=== PATIENT | female | born 1960 | race Caucasian/White ===

== ENCOUNTER → 2017-12-02 00:43 | Outpatient (CLI) | payer BC, SELFPAY ==
--- NOTE | 2017-12-02 08:30 | ETT_ITS ---
*[facility]* *[facility]* [address] [place] [address] Stress Electrocardiography Fredrick protocol Date of study: 12/02/2017 *PATIENT PRESENTATION* Height: 165.1cm (65in) Blood Pressure: Weight: 64.1kg (141lb) BSA: 1.72m^2 Ordering physician: Liset Ramey Impressions: Normal study after maximal exercise. Summary: 1. Stress ECG conclusions: The stress ECG is negative. Avelar treadmill score: 8. This score predicts a low risk of cardiac events. 2. Stress: The target heart rate was achieved. The heart rate response to stress is normal. There is a normal resting blood pressure with an appropriate response to stress. The patient experienced no chest pain during stress. Exercise capacity is recuced (9.3 METS). Indication: R00.2. History: REASON FOR TESTING: PT C/O DECREASED EXCERCISE TOLERANCE AND POUNDING HEARTBEAT. THE POUNDING HEATBEAT HAS NOT HAPPENED IN QUITE SOME TIME. PMH:HYPER;IPIDEMIA, COPD, HYPOTHYROID, LICHEN SCLEROSIS VULVA. FAMILY HX: CAD IN MOTHER. [id number], PAD. SMOKING: FORMER SMOKER 10-25 PACK YEARS.QUIT 5 YEARS AGO. EXCERCISE: NO REGULAR EXCERCISE. Risk factors: Family history of coronary artery disease. Dyslipidemia. Cholesterol: 282mg/dl. HDL: 71mg/dl. LDL: 187mg/dl. Triglycerides: 159mg/dl. ALLERGIES: ASPIRIN. MEDIOCATIONS: ALBUTEROL SULFATE 8.5 GM 2 PUFFS QID PRN, ASCORBIC ACID 250 MG DAILY, ATORVASTATIN CALCIUM 20 MG DAILY, VIT. D3 1000 UNITS DAILY, LOTRISONE CREAM 1 APPLICATIONS BID, ESTRADIOL 10 MCG PV HS 2X/WEEK. ADVAIR 250/50 DISKUS 1 PUFF BID, IBUPROFEN 200 MGS NEEDED, LEVOTHYROXINE 50 MCG DAILY, TRAZADONE HCL 50 MG 1-2 TABS HS PRN, VIT A 10,000 UNITS DAILY, VITAMIN B COMPLEX 1 DAILY, Protocol: Fredrick protocol. Baseline ECG: NO EKG FOR COMPARISON. TODAY'S EKG- SINUS RHYTHM, HR 63. Normal ECG. Stress protocol: + +---+ +----+ !Stage !HR !BP (mmHg) !Sat ! + +---+ +----+ !Baseline supine !63 !130/78 (95) !----! + +---+ +----+ !Baseline standing !78 !132/76 (95) !100%! + +---+ +----+ !Stage I; 1.7mph, 10degrees; 3 min !133!148/84 (105)!----! + +---+ +----+ !Stage II; 2.5mph, 12degrees; 3 min!148!162/88 (113)!96% ! + +---+ +----+ !Recovery; 1 min !164!182/88 (119)!----! + +---+ +----+ !Recovery; 3 min !112!170/84 (113)!----! + +---+ +----+ !Recovery; 6 min !92 !130/80 (97) !----! + +---+ +----+ * Stress results: Maximal heart rate during stress was 164bpm (101% of maximal predicted heart rate). The maximal predicted heart rate was 163bpm. The target heart rate was achieved. The heart rate response to stress is normal. There is a normal resting blood pressure with an appropriate response to stress. The rate-pressure product for the peak heart rate and blood pressure was 45446es Hg/min. The patient experienced no chest pain during stress. Exercise capacity is recuced (9.3 METS). Stress ECG: EXCERCSE TESTING ENDED IN 7 MINS, 28 SECS DUE TO FATIGUE AND DYSPNEA. MAX HR 164, 100% OF TARGET. HYPERTENSIVE BLOOD PRESSURE RESPONSE. METS: 9.31 ECTOPY: NONE SEEN. ANGINA: NO REPORTED CHEST PIAN OR PRESSURE. ISCHEMIA: NO ISCHEMIC CHANGES NOTED- ALL ST CHANGES WERE UPWARD SLOPING AND RETURNED TO BASELINE BY 6 MINS OF RECOVERY. FUNCTIONAL CAPACITY: AVERAGE CAPACITY. The stress ECG is negative. Avelar treadmill score: 8. This score predicts a low risk of cardiac events. Study data: Brandon Van MD supervised and was readily available during the procedure. This study was interpreted by [facility]. Study status: Routine. Consent: The risks, benefits, and alternatives to the procedure were explained to the patient and informed consent was obtained. Procedure: Initial setup. A baseline ECG was recorded. Surface ECG leads and manual cuff blood pressure measurements were monitored. Heart sounds: Normal. Lung sounds: Normal. Treadmill exercise testing was performed using the Fredrick protocol. Study completion: The patient tolerated the procedure well and was discharged from the lab. Discharge: The patient left the laboratory in stable condition. Birthdate: Patient birthdate: 1960. Sex: Gender: female. Study date: Study date: 12/02/2017. Study time: 08:30 AM. Signature Documentation: The Stress ECG portion of this study was interpreted by Brandon Van MD. Electronically signed by Brandon Van 12/02/2017 09:44
== END ==
PROVIDERS: PCP Nurse Practitioner; Visit Provider Nurse Practitioner
DX: R00.2 Palpitations (principal); R00.8 Other abnormalities of heart beat; R06.02 Shortness of breath; R68.89 Other general symptoms and signs; E78.5 Hyperlipidemia, unspecified; E03.9 Hypothyroidism, unspecified; J44.9 Chronic obstructive pulmonary disease, unspecified; Z87.891 Personal history of nicotine dependence; Z82.49 Family history of ischemic heart disease and other diseases of the circulatory system
CPT/HCPCS: 93017

== ENCOUNTER 2018-11-16 00:39 | Outpatient (CLI) | payer BC, SELFPAY ==
--- NOTE | 2018-11-16 11:10 | DI.MAMMO_ITS ---
SYMPTOM/DIAGNOSIS: SCREENING, Z12.31 MAMMOGRAMS: Mammograms were interpreted according to the usual protocol including computer analysis with CAD system, tomosynthesis and C view imaging. Comparison is with the prior examinations. No suspicious masses or microcalcifications are seen. There is no definite evidence of malignancy. IMPRESSION: Negative mammogram. Routine screening is recommended. Category 1, breast density C. MQSA ASSESSMENT OF FINDINGS: Negative. Category 1. Patient will receive a letter notifying them of these results. Bi-RADS category C. The breasts are heterogeneously dense, which may obscure small masses.
== END 2018-11-16 00:59 ==
PROVIDERS: PCP Nurse Practitioner; Visit Provider Nurse Practitioner Family
DX: Z12.31 Encounter for screening mammogram for malignant neoplasm of breast (principal)
CPT/HCPCS: 77063; 77067

== ENCOUNTER 2018-11-18 08:20 | Outpatient (CLI) | payer BC, SELFPAY ==
[2018-11-18 10:27] LABS: ALT 37 U/L (12-78); AST 18 U/L (15-37); Albumin 3.9 g/dL (3.4-5.0); Alkaline Phosphatase 111 U/L (46-116); Anion Gap 10.4 mmol/L (3-11); BUN 15 mg/dL (7-18); Bilirubin, Total 0.5 mg/dL (0.2-1.0); CO2 26.6 mmol/L (21.0-32.0); CREATININE 0.62 mg/dL (0.55-1.02); Calcium 8.9 mg/dL (8.5-10.1); Calculated LDL 92 mg/dL; Chloride 103 mmol/L (98-107); Cholesterol 184 mg/dL (50-200); Glucose 93 mg/dL (70-100); HDL Cholesterol 71 mg/dL (40-60); Potassium 4.5 mmol/L (3.5-5.1); Sodium 140 mmol/L (136-145); TSH (W/Ref FT4) 3.99 uIU/mL (0.36-3.74); Triglyceride 106 mg/dL (30-150)
[2018-11-18 10:47] LABS: FREE T4 1.05 ng/dL (0.76-1.46)
== END 2018-11-18 08:40 ==
PROVIDERS: PCP Nurse Practitioner; Visit Provider Nurse Practitioner
DX: E03.9 Hypothyroidism, unspecified (principal); E78.5 Hyperlipidemia, unspecified
CPT/HCPCS: 36415; 80053; 80061; 83721; 84439; 84443

== ENCOUNTER 2019-11-30 03:51 | Outpatient (CLI) | payer BC, SELFPAY ==
[2019-11-30 10:38] LABS: Calculated LDL 95 mg/dL (<100); Cholesterol 201 mg/dL (<200); HDL Cholesterol 72 mg/dL (40-60); Triglyceride 173 mg/dL (<150)
== END 2019-11-30 04:11 ==
PROVIDERS: PCP Nurse Practitioner; Visit Provider Nurse Practitioner
DX: E03.9 Hypothyroidism, unspecified (principal); E78.5 Hyperlipidemia, unspecified; I10 Essential (primary) hypertension
CPT/HCPCS: 36415; 80061; 84443

== ENCOUNTER 2019-11-30 08:55 | Outpatient (CLI) | payer BC, SELFPAY ==
--- NOTE | 2019-11-30 08:30 | DI.RAD_ITS ---
EXAM: XR WRIST RT COMPLETE CLINICAL HISTORY: right arm pain TECHNIQUE: COMPARISON: CR XR FOREARM RT from 11/30/2019 FINDINGS: Two views of the forearm and three views of the wrist were obtained. There is poorly defined lucency with some probable small linear lucencies of the distal radius raising the possibility of an acute o r subacute fracture. No other bony or soft tissue abnormality seen. IMPRESSION: Question nondisplaced fracture distal radius, please correlate clinically. Additional evaluation wi CT or MR may be considered if the clinical findings are inconsistent with trauma.
== END 2019-11-30 09:15 ==
PROVIDERS: PCP Nurse Practitioner; Referring Provider Nurse Practitioner; Visit Provider Student in an Organized Health Care Education/Training Program
DX: M79.601 Pain in right arm (principal)
CPT/HCPCS: 73090; 73110

== ENCOUNTER 2019-12-12 01:05 | Outpatient (CLI) | payer BC, SELFPAY ==
--- NOTE | 2019-12-12 12:00 | DI.MAMMO_ITS ---
EXAM: MAMMO SCREENING CLINICAL HISTORY: screening TECHNIQUE: Mammograms were interpreted according to the usual protocol including computer analysis w [employer] CAD system, tomosynthesis and C-view imaging. COMPARISON: 2009 through 2018 FINDINGS: The breasts are composed of heterogeneously dense fibroglandular densities, Breast Density category C . No suspicious masses or suspicious microcalcifications are seen. No skin thickening or abnormal axillary lymph nodes are seen. There has been no significant change from prior exams. IMPRESSION: BI-RADS Category 1: Negative mammogram Yearly screening mammography is recommended. Breast Density Category C, heterogeneously dense tissue which decreases the sensitivity of the mammog bart. The mammogram demonstrates the patient's breast tissue is dense. Dense breast tissue is very common a nd is not abnormal but dense breast tissue can make it harder to find cancer on a mammogram. Also, de nse breast tissue may increase breast cancer risk. This information about the result of the mammogram report was provided to the patient to raise their awareness. Use this report when you speak with the patient about their risks for breast cancer, which includes their family history. At that time, you may recommend additional screening tests (Ultrasound or MRI) as they might be useful based on their r isk. A negative radiographic report should not delay biopsy if a dominant or clinically suspicious mass is present. Up to ten percent of cancers are not identified on mammography. A negative report may reinforce clinical impression. Adenosis and dense breasts may obscure an underlying neoplasm. False positive reports average 6 to 10%.
== END 2019-12-12 01:25 ==
PROVIDERS: PCP Nurse Practitioner; Visit Provider Nurse Practitioner Family
DX: Z12.31 Encounter for screening mammogram for malignant neoplasm of breast (principal); R92.2 Inconclusive mammogram
CPT/HCPCS: 77063; 77067

== ENCOUNTER 2019-12-28 15:23 | Outpatient (CLI) | payer BC, SELFPAY ==
--- NOTE | 2019-12-28 15:05 | DI.RAD_ITS ---
EXAM: XR WRIST RT LIMITED CLINICAL HISTORY: fu fracture of right wrist. TECHNIQUE: 2D digital imaging was performed. COMPARISON: CR XR FOREARM RT from 11/30/2019 FINDINGS: There has been no change in alignment of the nondisplaced distal right radial fracture. No new fract ure or dislocation is seen. The soft tissues are unremarkable. IMPRESSION: Stable distal right radial fracture. DATA REPOSITORY: RADIATION DOSE DELIVERED:
== END 2019-12-28 15:43 ==
PROVIDERS: PCP Nurse Practitioner; Referring Provider Nurse Practitioner; Visit Provider Student in an Organized Health Care Education/Training Program
DX: S52.501A Unspecified fracture of the lower end of right radius, initial encounter for closed fracture (principal)
CPT/HCPCS: 73100

== ENCOUNTER 2020-01-25 15:26 | Outpatient (CLI) | payer BC, SELFPAY ==
--- NOTE | 2020-01-25 15:00 | DI.RAD_ITS ---
EXAM: XR WRIST RT LIMITED INDICATION: fu fracture. COMPARISON: CR XR WRIST RT COMPLETE from 11/30/2019 CR XR WRIST RT LIMITED from 12/28/2019 TECHNIQUE: 2D digital imaging was performed. FINDINGS: There has been continued healing at the distal radial fracture. DATA REPOSITORY: RADIATION DOSE DELIVERED:
== END 2020-01-25 15:46 ==
PROVIDERS: PCP Nurse Practitioner; Referring Provider Nurse Practitioner; Visit Provider Student in an Organized Health Care Education/Training Program
DX: S52.591D Other fractures of lower end of right radius, subsequent encounter for closed fracture with routine healing (principal)
CPT/HCPCS: 73100

== ENCOUNTER 2020-07-18 01:27 | Outpatient (CLI) | payer BC, SELFPAY ==
--- NOTE | 2020-07-18 14:44 | DI.RAD_ITS ---
EXAM: XR RIBS LT W PA LAT CHEST CLINICAL HISTORY: r/o bony abn; rib fx,LT SIDED RIB PAIN, PLEURODYNIA,R07.81 TECHNIQUE: 2D digital imaging was performed. COMPARISON: CR CHEST 2 VIEWS PA,LAT from 09/24/2015 FINDINGS: Heart size is normal. Mediastinum is not widened. Lungs are clear. No pneumothorax. No pleural ef fusions. With respect of the left rib cage images, there are no obvious rib fractures evident. No rib lesions seen. Pneumothorax. No compression fractures in the thoracic spinal column. IMPRESSION: 1. No obvious left rib fractures evident. 2. Lungs are clear. No pneumothorax. DATA REPOSITORY: RADIATION DOSE DELIVERED:
== END 2020-07-18 01:47 ==
PROVIDERS: PCP Nurse Practitioner; Visit Provider Nurse Practitioner Adult Health
DX: R07.81 Pleurodynia (principal)
CPT/HCPCS: 71046; 71100

== ENCOUNTER 2020-11-15 11:58 | Outpatient (REF) | payer OTHER, BC, SELFPAY ==
--- NOTE | 2020-11-15 11:30 | PAPFT_PTH ---
PATIENT: Jeana Stinson LOC: [facility] U#:[id number] AGE/SX: 60/F ROOM: RE11/15/[address]: DANIEL Yanez : 1960 BED: DIS: 11/15/2020 SPEC #: [id number] RECD: 11/15/20 12:55 STATUS: YANCI RERea #: [id number] RICHIE: 11/15/20 11:[address]: Meena Marcelo [facility] Cytology RECD BY: Rylie Dodge ENTERED: 11/15/20 12:55 SP TYPE: PAPFT OT DR: Liset Ramey APRN Tissues: 1 - CX/ENDOCX FOR PAP SMEARS Procedures: PAP THIN PREP/UVM Screening HPV DNA PROBE Comments: [id number]
== END 2020-11-15 11:59 | disposition home or self-care (01) ==
LOC: LBN 11:58
PROVIDERS: PCP Nurse Practitioner; Visit Provider Nurse Practitioner Family
DX: Z12.4 Encounter for screening for malignant neoplasm of cervix (principal); Z11.51 Encounter for screening for human papillomavirus (HPV); Z01.419 Encounter for gynecological examination (general) (routine) without abnormal findings
CPT/HCPCS: 88142; 87624

== ENCOUNTER 2020-12-25 01:13 | Outpatient (CLI) | payer OTHER, SELFPAY ==
--- NOTE | 2020-12-25 11:30 | DI.MAMMO_ITS ---
Exam(s) MAMMO SCREENING EXAM: MAMMO SCREENING CLINICAL HISTORY: screening TECHNIQUE: Bilateral full field digital CC and MLO mammographic images were obtained with 3D tomosyn thesis and utilizing computer aided detection (CAD). COMPARISON: Available for comparison. FINDINGS: Masses/Architectural Distortion: None seen. Microcalcifications: No suspicious pleomorphic-type are seen. Skin Thickening/Nipple Retraction: None. IMPRESSION: 1. No significant interval change with no specific features of malignancy noted. 2. Unless there is more urgent need, screening mammography is recommended, as per [employer] guidelines. BI-RADS Category 1 - Negative Breast Density - Category C - Heterogeneously dense Breast density category C or D implies that the patient has dense breast tissue. Dense breast tissue is very common and is not abnormal but dense breast tissue can make it harder to find cancer on a ma mmogram. Also, dense breast tissue may increase their breast cancer risk. This information about the result of the mammogram report was provided to the patient to raise their awareness. Use this report when you speak with the patient about their risks for breast cancer, which includes their family hist ory. At that time, you may recommend for more screening tests (Ultrasound or MRI) as they might be us eful based on their risk. A negative radiographic report should not delay biopsy if a dominant or clinically suspicious mass is present. Up to ten percent of cancers are not identified on mammography. A negative report may reinforce clinical impression. Adenosis and dense breasts may obscure an underlying neoplasm. False positive reports average 6 to 10%. Patient will receive a letter notifying them of these results.
== END 2020-12-25 01:33 ==
PROVIDERS: PCP Nurse Practitioner; Visit Provider Nurse Practitioner Family
DX: Z12.31 Encounter for screening mammogram for malignant neoplasm of breast (principal)
CPT/HCPCS: 77063; 77067

== ENCOUNTER 2021-01-01 04:44 | Outpatient (CLI) | payer OTHER, SELFPAY ==
[2021-01-01 11:13] LABS: ALT 41 U/L (14-59); AST 24 U/L (15-37); BUN 15 mg/dL (7-18); CREATININE 0.7 mg/dL (0.55-1.02); Calculated LDL 91 mg/dL (<100); Cholesterol 212 mg/dL (<200); Glucose 102 mg/dL (74-106); HDL Cholesterol 86 mg/dL (40-60); Triglyceride 177 mg/dL (<150)
== END 2021-01-01 04:45 | disposition home or self-care (01) ==
LOC: LBO 04:44
PROVIDERS: PCP Nurse Practitioner; Visit Provider Nurse Practitioner
DX: Z00.00 Encounter for general adult medical examination without abnormal findings (principal); E03.9 Hypothyroidism, unspecified; E78.5 Hyperlipidemia, unspecified; I10 Essential (primary) hypertension; Z13.1 Encounter for screening for diabetes mellitus
CPT/HCPCS: 36415; 80061; 82947; 84520; 82565; 84443; 84450; 84460

== ENCOUNTER 2021-08-07 01:11 | Outpatient (CLI) | payer OTHER, SELFPAY ==
--- NOTE | 2021-08-07 08:00 | DI.RAD_ITS ---
Exam(s) XR CHEST 2V PA LATERAL EXAM: XR CHEST 2V PA LATERAL CLINICAL HISTORY: persistent cough and wheeze,copd,r06.2,r05.9,j44.9 TECHNIQUE: 2D digital imaging was performed. COMPARISON: No exams were available for comparison FINDINGS: MEDIASTINUM: Normal. HEART: Normal. PULMONARY VASCULATURE: Normal. LUNGS: Patchy density seen anteriorly and above the right diaphragm suspicious for infiltrate. This is not seen on the previous exam. Lungs otherwise clear. PLEURAL SPACE: No pleural effusion or pneumothorax. BONE:Unremarkable for age. IMPRESSION: Probable right middle lobe infiltrate.. DATA REPOSITORY: RADIATION DOSE DELIVERED:
== END 2021-08-07 01:31 ==
PROVIDERS: PCP Nurse Practitioner; Visit Provider Nurse Practitioner
DX: R05.8 Other specified cough (principal); R06.2 Wheezing; J44.9 Chronic obstructive pulmonary disease, unspecified; R91.8 Other nonspecific abnormal finding of lung field
CPT/HCPCS: 71046

== ENCOUNTER 2021-09-16 03:07 | Outpatient (CLI) | payer OTHER, SELFPAY ==
[2021-09-16 12:00] LABS: Source Nasal/Nares
[2021-09-16 17:21] LABS: COVID-19 PCR Negative (Negative)
== END 2021-09-16 03:08 | disposition home or self-care (01) ==
LOC: LBO 03:07
PROVIDERS: PCP Nurse Practitioner; Visit Provider Surgery
DX: Z20.822 Contact with and (suspected) exposure to COVID-19 (principal); Z01.818 Encounter for other preprocedural examination
CPT/HCPCS: 87635

== ENCOUNTER 2021-09-17 06:15 | Day surgery (SDC) | payer OTHER, SELFPAY ==
--- NOTE | 2021-09-16 16:40 | W.PM.HP.N ---
Assessment and Plan Assessment and plan (1) Colon cancer screening: Status: Acute Assessment and plan: - She occasionally notes some bleeding when she wipes. - Plan:Colonscopy w/ MAC A complete H & P is required within 30 days of the procedure.? GETA w/out airway is used for anesthesia, w/ associated risks. Colonoscopy does not require antibiotics prophylaxis, except as noted below. ?Informed consent is obtained for the procedural (explained in simple layman's terms that?the pt and/or family could understand) explaining risks vs benefits and alternatives to the procedure and consequences if we do not do the procedure and need/rational for the procedure. Risks include but are not limited to: bleeding, infection, perforation of colon.? This would necessitate emergency surgery to repair the damage w/ possible ostomy; and other associated complications w/ the required surgery. ? Also complications of anesthesia including aspiration, CO/CVA/.I discussed with the?patient would they could expect during the procedure, post procedure and recovery time and risks.? The patient understands that they need to have a ride home after the procedure.? The patient was given all this information in writing and expressed understanding. If there are any questions or concerns please feel free to contact our office.? ? ? CARDIAC CONDITION HIGH RISK MODERATE RISK LOW RISK Prosthetic heart valves including bioprosthetic and homograft valves X Prior history of IE X Complex cyanotic congenital heart diseases such as single ventricle states, transpostion of the great arteries, and tetralogy of Fallot X Surgically constructed systemic or pulmonary conduits X ? (2) Acquired hypothyroidism: (3) COPD (chronic obstructive pulmonary disease): History of Present Illness Narrative: 61 y/o female with history of COPD, hypothyroidism, hyperlipidemia and? headaches presents for colonoscopy screening pre-op. Her last screening was in? 2011, which was unremarkable. She denies a family history of colon cancer. She denies any changes in bowel habits including or black tarry stools, abdominal pain, diarrhea or constipation. She questions if she has internal hemorrhoids, because sometimes, rarely if I have to strain to have a BM, I do sometimes have bright red blood.? She denies constitutional symptoms. Denies use of marijuana or any other recreational or illegal drugs. -I did review her colonoscopy report from 2011. This was normal. -Today, patient did not complete her bowel prep. She is only having Yuri yellow residue at this time. Currently she is having no abdominal pain, cramping, or nausea. She has no chest pain or chest pressure or shortness of breath. She has no fevers or cough. Patient also has been having significant rectal bleeding with bowel movements. She thinks it is on the inside. She is noticing blood in the toilet. We discussed internal and external hemorrhoids. If she has internal hemorrhoids that are amendable to banding she would like to have this procedure done. Risks include bleeding and infection and pain. We discussed postop expectations and cares for when she goes home She has had no changes in her medications or health status. Review of Systems All systems reviewed & are unremarkable except as noted in HPI and below PFSH All Active Problems Colon cancer screening (Acute) Medical History Acquired hypothyroidism (03/16/14) Back pain due to injury Bloating COPD (chronic obstructive pulmonary disease) Elbow stiffness Encounter for screening examination for impaired glucose regulation and diabetes mellitus Fracture of right distal radius (11/26/19) Headache History of tobacco use (01/31/14) Hyperlipidemia Lichen sclerosus et atrophicus of the vulva (01/23/15) Routine general medical examination at a health care facility RUQ pain Surgical History Biopsy, Soft Tissue (06/01/14) nasal mucosa Dr Gilliam Family History Mother Thyroid disorder Diabetes Father Heart disease Alcohol abuse Maternal Grandfather COPD (chronic obstructive pulmonary disease) Paternal Grandmother Cancer Ovarian Social History (Updated 08/15/21 @ 13:32 by LYN Schwartz) Smoking/Tobacco Use Status: Former Tobacco Use Quit Date: 04/27/12 Tobacco: How many years used: 35 Quit status: quit date established (Quit10/16/10) Smoking risk assessment performed?: Yes Alcohol Intake: current Alcohol Intake frequency: a few times a week Alcohol type: wine Drug use: Never Substance use type: does not use Adopted: No Caregiver/Support person: No Foster care: No Household members: spouse Housing: house Number of Children: 1 number of grandchildren: 1 Communication Needs: Corrective Lenses Education Level: high school Do you need help understanding health information?: Rarely current occupation: Retired Pets and animals: No Sexually active: Yes Do you think of yourself as: straight/heterosexual Current gender identity: female What is your relationship status?: How often do you talk on the phone with friends or family?: twice per week How often do you get together with friends or relatives?: once per week Do you belong to any clubs or organized social groups?: yes Panel score (0-1 are the most socially isolated patients): 3 What type of physical activity do you participate in: walking and other Details: bowls in winter, and 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, etc Duration: 60-90 minutes/day Frequency: 3-4 times per week Kamala/Nondenominational: Yazidism Special kamala needs: No Seatbelt use: always Drive intox or ride w/intox fence post driver: No Working smoke detector in home: Yes Carbon monox detector in home: Yes Do you feel safe at home: Yes Do you feel safe in your relationship?: Yes Meds Allergies and Home Medications Allergies Allergy/AdvReac Type Severity Reaction Status Date / Time aspirin AdvReac gerd Verified 09/17/21 06:34 Home Medications Medication Instructions Recorded Confirmed Type ibuprofen 200 mg tablet 200 mg PO PRN 10/19/12 09/17/21 History ascorbic acid (vitamin C) 1,000 mg 500 mg PO DAILY 05/30/14 09/17/21 History tablet multivitamin 1 tab PO DAILY 11/21/19 09/17/21 History albuterol sulfate 90 mcg/actuation 2 puff inhalation ONCE ##1 12/13/20 09/17/21 Rx aerosol inhaler (ProAir HFA) atorvastatin 20 mg tablet 20 mg PO DAILY #90 tabs 12/13/20 09/17/21 Rx fluticasone propionate 230 2 puff inhalation BID #12 grams 12/13/20 09/17/21 Rx mcg-salmeterol 21 mcg/actuation HFA inhaler (Advair HFA) levothyroxine 50 mcg tablet 50 mcg PO DAILY #90 tabs 12/13/20 09/17/21 Rx trazodone 50 mg tablet 50 mg PO HS #180 tabs 08/19/21 05/24/22 Rx clobetasol-emollient 0.05 % 1 applic topical HS #15 grams 07/23/21 09/17/21 Rx topical cream estradiol 10 mcg vaginal tablet 10 mcg vaginal DAILY 2 weeks #24 07/23/21 09/17/21 Rx (Vagifem) tabs Exam Const Other: PHYSICAL EXAM GENERAL APPEARANCE: Alert, healthy appearance, oriented, in no acute distress HEAD, EYES, EARS, NECK, THROAT: Head is normocephalic, pupils equal, round, reactive to light and accommodation, ocular movement intact, sclera clear and no jaundice. LUNGS: normal respiration/nl chest excursion. ?Clear to auscultation B/l no R/R/W ?HEART: Regular rate and rhythm, EXTREMITY: No edema or cyanosis? no leg pain, redness, swelling.? No IV infiltration ABDOMEN: non tender to palpation, no masses or distention, no hernias. Normal bowel sounds NEURO: no focal neuro deficits. ?
--- NOTE | 2021-09-16 16:46 | COLE_ITS ---
Colonoscopy Report Date of procedure: 09/17/21 Pre-op diagnosis general: CRC/rectal bleeding Post-op diagnosis procedure note: other (Diverticulosis/internal hemorrhoids/fissure) Surgeon: Lilliam Vargas Anesthesia Type: General:No Airway Estimated blood loss (mL): 1 Complications: None Disposition: same day Prep: Miralax/Dulcolax Retraction Time: 8 mins Procedure Description: After informed consent was obtained the patient was taken to the procedure room and placed in a left decubitous position. Monitors were applied and a time out was done. The patients name, date of , procedure, allergies to medications and metal in their body was reviewed. The patient was then sedated. Once jacqueline haydee and comfortable a rectal exam was done. Internal exam revealed a normal sphincter tone and no palpable masses. The scope was then introduced and retrofelexed. Grade I internal hemorrhoids were identified x2 columns, and an anal fissure. The scope was then advanced to the cecum w/out difficulty. The TI and appendiceal orifice were identified. The prep was BB PS II in the rectosigmoid region and a BB PS 3 in all other quadrants for a total of 8. the scope was then slowly retracted over minutes back into the rectum. she has moderate diverticular disease throughout the sigmoid colon. There are no polyps visualized. There are no AVMs visualized. The mucosa is pink and healthy with a normal vascular pattern. She has small anal fissure and a a sentinel tag associated with this. 2 hemorrhoids were banded. the scope Was removed and the patient was woken up and taken back to Same day surgery in stable condition. The patient tolerated the procedure well and there were no immediate complications. Follow up: The patient should follow up in 10 years unless they develop changes in bowel habits or other new gastrointestinal complaints.
--- NOTE | 2021-09-16 16:47 | W.PM.DSUDISC ---
Discharge Plan Disposition Patient Disposition: HOME Condition: Good Discharge Details Reason For Visit: colon scope Attending Provider: Lilliam Vargas Primary Care Provider: Liset Ramey Home Meds and New Rx's Prescriptions: Continued estradiol [Vagifem] 10 mcg tablet 10 mcg VG DAILY 14 Days Qty: 24 4RF Rx Instructions: use one tab in vagina at bedtime twice weekly clobetasol-emollient 0.05 % cream 1 applic TP HS Qty: 15 2RF Rx Instructions: Apply sparingly to affected area daily at bedtime as needed. multivitamin Tablet 1 tab PO DAILY atorvastatin 20 mg tablet 20 mg PO DAILY Qty: 90 3RF levothyroxine 50 mcg tablet 50 mcg PO DAILY Qty: 90 3RF Rx Instructions: take 1 tab PO daily albuterol sulfate [ProAir HFA] 90 mcg/actuation HFA aerosol inhaler 2 puff Inhalation ONCE Qty: 1 12RF Rx Instructions: 2 puffs QID PRN. trazodone 50 mg tablet 50 mg PO HS Qty: 180 3RF Rx Instructions: take 1-2 as needed for sleep Advair HFA 230-21 mcg/actuation HFA aerosol inhaler 2 puff IH BID Qty: 12 12RF ibuprofen 200 MG tablet 200 mg PO PRN Rx Instructions: 1-2 tab ascorbic acid (vitamin C) 1,000 MG tablet 500 mg PO DAILY Discontinued bisacodyl [Dulcolax (bisacodyl)] 5 mg tablet,delayed release (DR/EC) 5 mg PO ONCE Qty: 4 0RF Rx Instructions: Take according to provider's instructions for colonoscopy prep. polyethylene glycol 3350 17 gram/dose powder 17 g PO ONCE Qty: 238 0RF Rx Instructions: To be taken as directed by prescriber's office for colonoscopy prep. Discharge Instructions Additional Instructions: DSU Colonoscopy Post-Op Instructions Instructions for Everyone who is given Anesthesia: For your safety, please do the following for the next twenty-four (24) hours: *Do Not operate a motor vehicle (car, truck, motorcycle, etc.) *Do Not drink alcoholic beverages or use any recreational drugs for the first 24 hours or while taking pain medications. The medications in your body may have a reaction that can be dangerous. *Do Not make any important decisions or sign any important papers. Findings: Moderate diverticula fissure x2 hemorrhoids Follow up: 2 weeks 1. No lifting over 20 pounds or strenuous activity for the first 24 hours after your procedure. After 24 hours there are no restrictions on your activity but you may feel fatigued for a few days. 2. After you arrive home you may have a light meal and return to your normal diet as you can tolerate it without feeling sick to your stomach. 3. You may have a bloated, gaseous feeling in your belly (abdomen) after a colonoscopy. Passing gas and belching will help. Walking or lying down on your left side with your knees flexed may relieve the discomfort. Call the office at [phone] (Office) or [phone] (Hospital) right away if you notice any of the following: a.Vomiting of blood or ?coffee ground stools?. b.Rectal bleeding 1Tbsp, blood clots or continuous bleeding. c.Severe belly (abdominal) pain. d.A hard distended belly (abdomen) and an inability to pass gas. 4. Please don?t expect to have a normal BM (bowel movement) for 2-3 days after your procedure. 5. If there are questions regarding the findings of your procedure, please contact your doctor 6. If you are unable to contact your doctor with a problem, contact the hospital at [phone]. 7. Continue all your regular medications unless directed otherwise. I understand the above instructions and have no questions. Signature of Patient or Adult Escort Name of Responsible Adult Escort Signature of Nurse Date/Time Activity:: see above Diet:: see above Discharge Orders Discharge Orders: Discharge Order (Routine); Ordered 09/16/21 Ordered By: Lilliam Vargas DS: Diagnosis Discharge Diagnosis (1) Colon cancer screening: Status: Acute (2) COPD (chronic obstructive pulmonary disease):
[2021-09-17 06:30] VITALS: BP 161/97; PULSE 73; RESP 16; TEMP 36.5; O2SAT 98
[2021-09-17] MEDS: Lactated Ringers 1,000 ML 80 ML IV (06:55)
--- NOTE | 2021-09-17 07:06 | W.ANESPRE ---
General Info Date of Service Date Performed: 09/17/21 Height: 5 ft 2 in Weight: 65.1 kg Body Mass Index (BMI): 26.2 Surgical Procedure: Operation Date: 09/17/21 07:35 Proposed Procedure Side Surgeon cherelle Vargas, DO Meds Allergies and Home Medications Allergies Allergy/AdvReac Type Severity Reaction Status Date / Time aspirin AdvReac gerd Verified 09/17/21 06:34 Home Medication Medication Instructions Recorded ibuprofen 200 mg tablet 200 mg PO PRN 10/19/12 ascorbic acid (vitamin C) 1,000 mg 500 mg PO DAILY 05/30/14 tablet multivitamin 1 tab PO DAILY 11/21/19 albuterol sulfate 90 mcg/actuation 2 puff inhalation ONCE ##1 12/13/20 aerosol inhaler (ProAir HFA) atorvastatin 20 mg tablet 20 mg PO DAILY #90 tabs 12/13/20 fluticasone propionate 230 2 puff inhalation BID #12 grams 12/13/20 mcg-salmeterol 21 mcg/actuation HFA inhaler (Advair HFA) levothyroxine 50 mcg tablet 50 mcg PO DAILY #90 tabs 12/13/20 trazodone 50 mg tablet 50 mg PO HS #180 tabs 12/13/20 clobetasol-emollient 0.05 % 1 applic topical HS #15 grams 07/23/21 topical cream estradiol 10 mcg vaginal tablet 10 mcg vaginal DAILY 2 weeks #24 07/23/21 (Vagifem) tabs Current Visit Medications: Current Medications Generic Name Dose Route Start Last Admin Trade Name Freq PRN Reason Stop Dose Admin Hyoscyamine Sulfate 0.125 mg 09/16/21 16:50 Hyoscyamine 0.125 Mg Sl/Oral/Chew SL DIRECTED PRN Ringer's Solution 1,000 mls @ 80 mls/hr 09/17/21 06:00 09/17/21 06:55 IV 10/16/21 23:59 80 mls/hr INFUSION JAMARI Administration IV Miscellaneous Supplies 1 each 09/17/21 06:00 Iv Access IV 10/16/21 23:59 DIRECTED JAMARI Ondansetron HCl 4 mg 09/16/21 16:50 Ondansetron 4 Mg/2 Ml Vial IVP Q4H PRN PRN Nausea / Vomiting Sodium Chloride 0 ml 09/17/21 06:00 Normal Saline Flush 10 Ml Syr IV 10/16/21 23:59 PRN PRN Sodium Chloride 0 ml 09/17/21 06:00 Normal Saline 10 Ml Vial IJ 10/16/21 23:59 DIRECTED PRN Sterile Water 0 ml 09/17/21 06:00 Water,Injection,Sterile 10 Ml Vial IJ 10/16/21 23:59 DIRECTED PRN PFSH Active Problems Active Problems: Problem Status Onset Code Colon cancer screening Z12.11 Medical History Medical History Acquired hypothyroidism (03/16/14) Back pain due to injury Bloating COPD (chronic obstructive pulmonary disease) Elbow stiffness Encounter for screening examination for impaired glucose regulation and diabetes mellitus Fracture of right distal radius (11/26/19) Headache History of tobacco use (01/31/14) Hyperlipidemia Lichen sclerosus et atrophicus of the vulva (01/23/15) Routine general medical examination at a health care facility RUQ pain Medical History Comments:: Pt. states last time she had a colonoscopy they gave her Narcan 10 years ago Surgical History Surgical History Biopsy, Soft Tissue (06/01/14) nasal mucosa Dr Gilliam Tobacco Smoking/Tobacco Use Status: Former Tobacco Use Passive smoking exposure: No Alcohol Alcohol Intake: current Alcohol intake frequency: a few times a week Alcohol type: wine Substance Use Substance use: Never Substance use type: does not use Vital Signs and Lab Results Vital Signs Most Recent Vital Signs in EMR: Most Recent Vital Signs Temp Pulse Resp BP Pulse Ox 36.5 C 73 16 161/97 H 98 09/17/21 06:30 09/17/21 06:30 09/17/21 06:30 09/17/21 06:30 09/17/21 06:30 Lab Results Blood Type / Crossmatch: No Data to Display Complete Blood Count: No Data to Display Complete Metabolic Panel: No Data to Display Liver Function Panel: No Data to Display Coagulation Panel: No Data to Display Cardiac Panel: No Data to Display Arterial Blood Gas: No Data to Display Venous Blood Gas: No Data to Display Pancreas Panel: No Data to Display Thyroid Panel: No Data to Display Infectious Disease: Coronavirus (COVID-19)(PCR) Negative (Negative) 09/16/21 09:05 Coronavirus 2019 Source Nasal/Nares 09/16/21 09:05 Blood Cultures: No Data to Display Toxicology Panel: No Data to Display Anesthesia Assessment and Plan Anesthesia History Personal History: Other Family History: No Family History of Anesthesia Complications Exercise Tolerance Exercise Tolerance: Metabolic Equivalents>4 Pertinent Negatives Pertinent Negatives: No Symptoms of GERD, No Major Cardiovascular Symptoms or Complaints and No History of CVA/TIA Cardiac & Pulmonary Exam Cardiac Exam: Normal S1/S2 Heart Sounds Pulmonary Exam: Clear Bilateral Breath Sounds Implantable Cardiac Device Does patient have a Pacemaker or an ICD?: No Airway Exam Known Difficult Airway: No Mallampati Class: 2 Mouth Opening: Normal (> 3cm) Thyromental Distance: Greater than 3 cm Neck Range of Motion: Full ROM (reports discomfort in full extension) Neck Circumference: Normal Teeth Condition: Normal Dentition ASA Classification ASA Score: ASA 2 Emergency Case?: No NPO Status NPO Status: NPO Clears >2 hours, Solids >8 hours Anesthesia Plan Resuscitation Status: Full Code Anesthesia Technique: General Anesthesia Airway Planned: Natural Airway Monitors Used: Standard Monitors
[2021-09-17 07:38] VITALS: BMI 26.2
[2021-09-17 08:18] VITALS: BP 156/90; PULSE 73; RESP 16; TEMP 36.1; O2SAT 97
[2021-09-17] MEDS: Hyoscyamine 0.125 MG SL/ORAL/CHEW SL (08:26)
[2021-09-17 08:50] VITALS: BP 165/79; PULSE 52; RESP 16; TEMP 36.4; O2SAT 100
--- NOTE | 2021-09-17 09:07 | W.ANESPOSTOP ---
Postoperative Evaluation Date, Time and Location Date Performed: 09/17/21 Time Performed: 08:42 Patient Location: Day Surgery Unit Vital Signs Most Recent Imported Vital Signs: Most Recent Vital Signs Temp Pulse Resp BP Pulse Ox 36.1 C L 73 16 156/90 H 97 09/17/21 08:18 09/17/21 08:18 09/17/21 08:18 09/17/21 08:18 09/17/21 08:18 Pain Score Most Recent Pain Score: Most Recent Pain Score Pain Level 3 09/17/21 08:18 Assessment Mental Status: Awake (Alert & Oriented to Patient Baseline) Airway and Respiratory Function: Patent airway with normal (patient baseline) respiratory exam Cardiovascular Function: Hemodynamically Stable Hydration Status: Adequately Hydrated Nausea & Vomiting: No Nausea or Vomiting Pain: Pain is tolerable per patient Peripheral Nerve Block: Patient did not receive a nerve block
== END 2021-09-17 09:32 | disposition home or self-care (01) ==
PROVIDERS: PCP Nurse Practitioner; Visit Provider Surgery
PROC: 0DJD8ZZ Inspection of Lower Intestinal Tract, Via Natural or Artificial Opening Endoscopic (ICD-10-PCS; CPT 45378; principal; 2021-09-17 07:30)
DX: Z12.11 Encounter for screening for malignant neoplasm of colon (principal); J44.9 Chronic obstructive pulmonary disease, unspecified; E03.9 Hypothyroidism, unspecified; E78.5 Hyperlipidemia, unspecified; K57.30 Diverticulosis of large intestine without perforation or abscess without bleeding; K64.0 First degree hemorrhoids; K60.2 Anal fissure, unspecified
CPT/HCPCS: 45378; J3010; J3490

== ENCOUNTER 2022-01-14 01:25 | Outpatient (CLI) | payer OTHER, SELFPAY ==
[2022-01-14 09:21] LABS: HCT 40.5 % (36.0-46.0); HGB 13.6 g/dL (11.2-15.7); MCH 32.4 pg (27.0-33.0); MCHC 33.6 % (32.0-36.0); MCV 96 fL (80-95); MPV 10.4 fL (8.0-11.0); Platelet Count 225 10^3/uL (130-400); RDW 13.2 % (11.7-14.6); RDW-SD 47.2 fL; WBC 7.57 10^3/uL (4.4-10.8)
[2022-01-14 10:23] LABS: ALT 39 U/L (14-59); AST 24 U/L (15-37); Albumin 3.8 g/dL (3.4-5.0); Alkaline Phosphatase 94 U/L (46-116); Anion Gap 8.3 mmol/L (3-11); BUN 14 mg/dL (7-18); Bilirubin, Total 0.5 mg/dL (0.2-1.0); CO2 29.7 mmol/L (21.0-32.0); CREATININE 0.7 mg/dL (0.55-1.02); Calcium 9.2 mg/dL (8.5-10.1); Calculated LDL 94 mg/dL (<100); Chloride 102 mmol/L (98-107); Cholesterol 214 mg/dL (<200); Estimated GFR 98.34 (mL/min/1.73m2); Glucose 105 mg/dL (74-106); HDL Cholesterol 87 mg/dL (40-60); Potassium 4.1 mmol/L (3.5-5.1); Sodium 140 mmol/L (136-145); TSH (W/Ref FT4) 2.78 uIU/mL (0.36-3.74); Total Protein 7.7 g/dL (6.4-8.2); Triglyceride 165 mg/dL (<150)
== END 2022-01-14 01:26 | disposition home or self-care (01) ==
LOC: LBO 01:25
PROVIDERS: PCP Nurse Practitioner; Visit Provider Nurse Practitioner
DX: E03.9 Hypothyroidism, unspecified (principal); E78.5 Hyperlipidemia, unspecified; I10 Essential (primary) hypertension
CPT/HCPCS: 36415; 80053; 80061; 85027; 84443

== ENCOUNTER → 2022-01-20 01:38 | Outpatient (CLI) | payer OTHER, SELFPAY ==
--- NOTE | 2022-01-20 12:10 | DI.MAMMO_ITS ---
Exam(s) MAMMO SCREENING EXAM: MAMMO SCREENING CLINICAL HISTORY: screening,z12.39 TECHNIQUE: Mammograms were interpreted according to the usual protocol including computer analysis w [employer] CAD system, tomosynthesis and C-view imaging. COMPARISON: 2012 through 2020 FINDINGS: The breasts are composed of heterogeneously dense fibroglandular densities, Breast Density category C . No suspicious masses or suspicious microcalcifications are seen. No skin thickening or abnormal axillary lymph nodes are seen. There has been no significant change from prior exams. IMPRESSION: BI-RADS Category 1, Negative mammogram. Yearly screening mammography is recommended. Breast Density Category C, heterogeneously Dense. The mammogram demonstrates the patient's breast tissue is dense. Dense breast tissue is very common a nd is not abnormal but dense breast tissue can make it harder to find cancer on a mammogram. Also, de nse breast tissue may increase breast cancer risk. This information about the result of the mammogram report was provided to the patient to raise their awareness. Use this report when you speak with the patient about their risks for breast cancer, which includes their family history. At that time, you may recommend additional screening tests (Ultrasound or MRI) as they might be useful based on their r isk. A negative radiographic report should not delay biopsy if a dominant or clinically suspicious mass is present. Up to ten percent of cancers are not identified on mammography. A negative report may reinforce clinical impression. Adenosis and dense breasts may obscure an underlying neoplasm. False positive reports average 6 to 10%.
== END ==
PROVIDERS: PCP Nurse Practitioner; Visit Provider Nurse Practitioner
DX: Z12.31 Encounter for screening mammogram for malignant neoplasm of breast (principal); R92.8 Other abnormal and inconclusive findings on diagnostic imaging of breast
CPT/HCPCS: 77063; 77067

== ENCOUNTER 2023-01-14 03:31 | Outpatient (CLI) | payer BC, SELFPAY ==
[2023-01-14 09:33] LABS: ALT 32 U/L (14-59); AST 17 U/L (15-37); Albumin 3.8 g/dL (3.4-5.0); Alkaline Phosphatase 94 U/L (46-116); Anion Gap 7.1 mmol/L (3-11); BUN 15 mg/dL (7-18); Bilirubin, Total 0.5 mg/dL (0.2-1.0); CO2 28.9 mmol/L (21.0-32.0); CREATININE 0.7 mg/dL (0.55-1.02); Calcium 9.3 mg/dL (8.5-10.1); Calculated LDL 88 mg/dL (<100); Chloride 102 mmol/L (98-107); Cholesterol 207 mg/dL (<200); Estimated GFR 97.72 (mL/min/1.73m2); Glucose 103 mg/dL (74-106); HDL Cholesterol 87 mg/dL (40-60); Potassium 3.8 mmol/L (3.5-5.1); Sodium 138 mmol/L (136-145); TSH (W/Ref FT4) 6.45 uIU/mL (0.36-3.74); Total Protein 7.4 g/dL (6.4-8.2); Triglyceride 162 mg/dL (<150)
[2023-01-14 09:52] LABS: FREE T4 1.04 ng/dL (0.76-1.46)
== END 2023-01-14 03:32 | disposition home or self-care (01) ==
LOC: LBO 03:31
PROVIDERS: Absent Provider Nurse Practitioner; PCP Nurse Practitioner; Referring Provider Nurse Practitioner; Visit Provider Nurse Practitioner
DX: E03.9 Hypothyroidism, unspecified (principal); E78.5 Hyperlipidemia, unspecified
CPT/HCPCS: 36415; 80053; 80061; 84439; 84443

== ENCOUNTER → 2023-01-21 01:30 | Outpatient (CLI) | payer BC, SELFPAY ==
--- NOTE | 2023-01-21 08:15 | DI.MAMMO_ITS ---
Exam(s) MAMMO SCREENING EXAM: MAMMO SCREENING CLINICAL HISTORY: screening,Z12.39 TECHNIQUE: Bilateral full field digital CC and MLO mammographic images were obtained with 3D tomosyn thesis and utilizing computer aided detection (CAD). COMPARISON: Available for comparison. FINDINGS: Masses/Architectural Distortion: The left retroareolar nodule is unchanged. No suspicious nodules or new areas of architectural distortion are seen. Microcalcifications: No suspicious pleomorphic-type are seen. Skin Thickening/Nipple Retraction: None. IMPRESSION: 1. No significant interval change with no specific features of malignancy noted. 2. Unless there is more urgent need, screening mammography is recommended, as per [employer] guidelines. BI-RADS Category 1 - Negative Breast Density - Category C - Heterogeneously dense Breast density category C or D implies that the patient has dense breast tissue. Dense breast tissue is very common and is not abnormal but dense breast tissue can make it harder to find cancer on a ma mmogram. Also, dense breast tissue may increase their breast cancer risk. This information about the result of the mammogram report was provided to the patient to raise their awareness. Use this report when you speak with the patient about their risks for breast cancer, which includes their family hist ory. At that time, you may recommend for more screening tests (Ultrasound or MRI) as they might be us eful based on their risk. A negative radiographic report should not delay biopsy if a dominant or clinically suspicious mass is present. Up to ten percent of cancers are not identified on mammography. A negative report may reinforce clinical impression. Adenosis and dense breasts may obscure an underlying neoplasm. False positive reports average 6 to 10%. Patient will receive a letter notifying them of these results.
== END ==
PROVIDERS: PCP Nurse Practitioner; Visit Provider Nurse Practitioner
DX: Z12.31 Encounter for screening mammogram for malignant neoplasm of breast (principal)
CPT/HCPCS: 77063; 77067

== ENCOUNTER → 2023-04-13 19:00 | Outpatient (CLI) | payer BC, SELFPAY ==
--- NOTE | 2023-04-13 15:05 | DI.RAD_ITS ---
Exam(s) XR CHEST 2V PA LATERAL EXAM: XR CHEST 2V PA LATERAL CLINICAL HISTORY: R05.9 Persistent cough TECHNIQUE: 2D digital imaging was performed of the chest. Two images were obtained. PA and lateral views were obtained. COMPARISON: CR XR CHEST 2V PA LATERAL from 08/07/2021 FINDINGS: MEDIASTINUM: Normal. HEART: Normal. PULMONARY VASCULATURE: Normal. LUNGS: Clear. PLEURAL SPACE: No pleural effusion or pneumothorax. BONE:Within normal limits for the patient's age. OTHER FINDINGS:Normal. IMPRESSION: No acute pulmonary findings. DATA REPOSITORY: RADIATION DOSE DELIVERED:
== END ==
PROVIDERS: PCP Nurse Practitioner; Visit Provider Emergency Medicine
DX: R05.9 Cough, unspecified (principal)
CPT/HCPCS: 71046

== ENCOUNTER 2023-05-05 04:11 | Outpatient (CLI) | payer BC, SELFPAY ==
[2023-05-05] MEDS: Levalbuterol HFA 15 GM INH 4 PUFF IH (14:23)
[2023-05-05] MEDS: Inhaler, Assist Device 1 EACH MC (14:24)
--- NOTE | 2023-05-11 10:56 | W.PFT ---
Date of service: 05/05/23 Time of Service: 13:03 Pulmonary Function Test Result Indications: COPD Interpretation Spirometry: There is moderate airflow limitation. There is no bronchodilator response. Lung Volumes: There is air trapping Diffusion Capacity: There is normal diffusion. Airway Pressure: Increased airways resistance Impression Moderate airflow obstruction with air trapping and a normal diffusion. This could represent chronic bronchitis (COPD). Clinical Correlation therefore is recommended.
== END 2023-05-05 04:12 | disposition home or self-care (01) ==
LOC: RT 04:12
PROVIDERS: PCP Nurse Practitioner; Visit Provider Emergency Medicine
DX: J44.9 Chronic obstructive pulmonary disease, unspecified (principal)
CPT/HCPCS: 94060; 94726; 94729

== ENCOUNTER 2023-07-03 01:29 | Outpatient (CLI) | payer BC, SELFPAY ==
[2023-07-03 12:45] LABS: TSH (W/Ref FT4) 0.41 uIU/mL (0.36-3.74)
== END 2023-07-03 01:30 | disposition home or self-care (01) ==
PROVIDERS: PCP Nurse Practitioner; Visit Provider Nurse Practitioner
DX: E03.9 Hypothyroidism, unspecified (principal)
CPT/HCPCS: 36415; 84443

== ENCOUNTER 2024-02-08 09:43 | Outpatient (CLI) | payer BC, SELFPAY ==
[2024-02-08 09:27] LABS: ALT 35 U/L (14-59); AST 21 U/L (15-37); Albumin 4.1 g/dL (3.4-5.0); Alkaline Phosphatase 118 U/L (46-116); Anion Gap 9.9 mmol/L (3-11); BUN 17 mg/dL (7-18); CO2 27.1 mmol/L (21.0-32.0); CREATININE 0.8 mg/dL (0.55-1.02); Calcium 9.3 mg/dL (8.5-10.1); Calculated LDL 109 mg/dL (<100); Chloride 105 mmol/L (98-107); Cholesterol 219 mg/dL (<200); Estimated GFR 82.74 (mL/min/1.73m2); Glucose 118 mg/dL (74-106); HDL Cholesterol 86 mg/dL (40-60); Potassium 4.4 mmol/L (3.5-5.1); Sodium 142 mmol/L (136-145); TSH (W/Ref FT4) 1.33 uIU/mL (0.36-3.74); Total Protein 7.9 g/dL (6.4-8.2); Triglyceride 124 mg/dL (<150)
== END 2024-02-08 09:44 | disposition home or self-care (01) ==
LOC: LBO 09:43
PROVIDERS: PCP Nurse Practitioner; Visit Provider Nurse Practitioner
DX: E03.9 Hypothyroidism, unspecified (principal); E78.5 Hyperlipidemia, unspecified; J44.9 Chronic obstructive pulmonary disease, unspecified
CPT/HCPCS: 36415; 80053; 80061; 84443

== ENCOUNTER 2024-02-15 00:46 | Outpatient (CLI) | payer BC, SELFPAY ==
--- NOTE | 2024-02-15 06:30 | DI.DEXA_ITS ---
Exam(s) XR DEXA BONE DENSITY W/WO ELLA EXAM: XR DEXA BONE DENSITY W/WO ELLA CLINICAL HISTORY: screen for osteoporosis, Preventative,z78.0 TECHNIQUE: COMPARISON: No exams were available for comparison FINDINGS: Lateral Spine Image: Unremarkable. No compression deformities identified. Left hip: Total T-Score: -0.3 Total Z-Score: 0.9 T- and Z-scores: Within normal limits. Lumbar Spine: Total T-Score: -0.1 Total Z-Score: 1.6 T- and Z-scores: Within normal limits. IMPRESSION: No evidence of osteoporosis.
--- NOTE | 2024-02-15 06:30 | DI.MAMMO_ITS ---
Exam(s) MAMMO SCREENING EXAM: MAMMO SCREENING CLINICAL HISTORY: screening,z12.39. TECHNIQUE: Bilateral full field digital CC and MLO mammographic images were obtained with 3D tomosyn thesis and utilizing computer aided detection (CAD). COMPARISON: Prior mammograms were reviewed. FINDINGS: There are no new right breast findings. In the left breast on the MLO view there is a nodular density measuring 7 x 5 mm located approximatel y 2.5 cm in from nipple. There are no malignant-appearing microcalcification groups in this region nor elsewhere in either evelyn ast. There is no significant architectural distortion nor skin thickening-retraction. IMPRESSION: 1. No radiographic evidence of malignancy in the right breast. 2. Asymmetric density-possible nodule left breast measuring 7 x 5 mm. Recommend spot compression MLO view and breast ultrasound. BI-RADS Category 0 - Incomplete: Need additional imaging evaluation Breast Density - Category C - Heterogeneously dense Breast density Category C or D implies that the patient has dense breast tissue. Dense breast tissue can make it harder to find cancer on a mammogram. Dense breast tissue is also associated with an incr eased risk of breast cancer. This information about the result of the mammogram report was provided to the patient to raise their awareness. Use this report when you speak with the patient about their risks for breast cancer, which includes their family history. At that time, you may recommend additional screening tests (Ultrasoun d or MRI) as these tests may add significant information. A negative radiographic report should not delay biopsy if a dominant or clinically suspicious mass is present. Up to ten percent of cancers are not identified on mammography. A negative report may reinforce clinical impression. Adenosis and dense breasts may obscure an underlying neoplasm. False positive reports average 6 to 10%. Patient will receive a letter notifying them of these results.
== END 2024-02-15 01:06 ==
PROVIDERS: PCP Nurse Practitioner; Visit Provider Nurse Practitioner
DX: Z12.31 Encounter for screening mammogram for malignant neoplasm of breast (principal); Z78.0 Asymptomatic menopausal state; Z13.820 Encounter for screening for osteoporosis
CPT/HCPCS: 77063; 77067; 77080

== ENCOUNTER 2024-02-24 00:39 | Outpatient (CLI) | payer BC, SELFPAY ==
--- NOTE | 2024-02-24 13:15 | DI.US_ITS ---
Exam(s) MG MAMMO SCREEN CALL BACK UNI US BREAST LT LIMITED EXAM: MG MAMMO SCREEN CALL BACK UNI CLINICAL HISTORY: F/U MAMMO, R92.8,LT ASYMMETRIC DENSITY,? NODULE. TECHNIQUE: Mediolateral oblique spot compression digital Mammography views of the left breast with Tomosynthesis and left breast ultrasound. COMPARISON: MG Screening Bilat Mammo from 07/23/2017 MG MG mammo screening from 11/16/2018 MG MG MAMMO SCREENING from 12/12/2019 MG MG MAMMO SCREENING from 12/25/2020 MG MG MAMMO SCREENING from 01/20/2022 MG MG MAMMO SCREENING from 01/21/2023 MG MG MAMMO SCREENING from 02/15/2024 US US BREAST LT LIMITED from 02/24/2024 FINDINGS: Mammography/Tomosynthesis: Masses: Stable small circumscribed nodule in the medial subareolar tissue. Architectural Distortion: None seen. Microcalcifictions: No suspicious pleomorphic-type are seen. Skin Thickening/Nipple Retraction: None. Left breast US: Echotexture: Normal appearance of the glandular tissue. Shadowing: No suspicious foci. Cyst: 5 x 4 x 5 millimeter cyst in the 6 o'clock position in the anterior tissue. Solid lesions: None seen. Ductal dilation: None. IMPRESSION: 1. No evidence of malignancy is noted. Mammographic nodule corresponds to a 5 millimeter simple cyst. 2. Unless there is more urgent need, follow-up screening mammography is recommended, as per [employer] [employer] guidelines. 3. The findings were discussed with the patient on the date of the examination. BI-RADS Category 2 - Benign Findings Breast Density - Category C - Heterogeneously dense A mammogram that demonstrates density of C or D indicates the patient's breast tissue is dense. Dense breast tissue is very common and is not abnormal, but dense breast tissue can make it harder to find cancer on a mammogram. Also, dense breast tissue may increase their breast cancer risk. This informa tion about the result of the mammogram report was provided to the patient to raise their awareness. U se this report when you speak with the patient about their risks for breast cancer, which includes th eir family history. At that time, you may recommend for more screening tests (Ultrasound or MRI) as t hey might be useful based on their risk. A negative radiographic report should not delay biopsy if a dominant or clinically suspicious mass is present. Up to ten percent of cancers are not identified on mammography. A negative report may reinforce clinical impression. Adenosis and dense breasts may obscure an underlying neoplasm. False positive reports average 6 to 10%. Patient will receive a letter notifying them of these results.
== END 2024-02-24 00:59 ==
LOC: DI 00:39
PROVIDERS: PCP Nurse Practitioner; Visit Provider Nurse Practitioner
DX: Z12.31 Encounter for screening mammogram for malignant neoplasm of breast (principal); N60.02 Solitary cyst of left breast
CPT/HCPCS: 76642; 77063; 77067

== ENCOUNTER 2025-02-01 03:51 | Outpatient (CLI) | payer MEDICARE, SELFPAY ==
[2025-02-01 10:10] LABS: ALT 32 U/L (14-59); AST 22 U/L (15-37)
[2025-02-01 10:20] LABS: Anion Gap 9.8 mmol/L (3-11); BUN 12 mg/dL (7-18); CO2 27.2 mmol/L (21.0-32.0); Calcium 9.1 mg/dL (8.5-10.1); Calculated LDL 100 mg/dL (<100); Chloride 103 mmol/L (98-107); Cholesterol 205 mg/dL (<200); Estimated GFR 100.17 (mL/min/1.73m2); Glucose 108 mg/dL (74-106); HDL Cholesterol 80 mg/dL (>or=50); Potassium 4.1 mmol/L (3.5-5.1); Sodium 140 mmol/L (136-145); TSH (W/Ref FT4) 1.72 uIU/mL (0.36-3.74); Triglyceride 128 mg/dL (<150)
== END 2025-02-01 03:52 | disposition home or self-care (01) ==
LOC: LBO 03:51
DX: E78.5 Hyperlipidemia, unspecified (principal); Z00.00 Encounter for general adult medical examination without abnormal findings; E03.9 Hypothyroidism, unspecified
CPT/HCPCS: 36415; 80048; 80061; 84443; 84450; 84460

== ENCOUNTER → 2025-02-06 10:47 | Outpatient (BNVA) | payer MEDICARE, SELFPAY | PROVIDERS: Visit Provider Internal Medicine Pulmonary Disease | DX: J42 Unspecified chronic bronchitis (principal); R91.8 Other nonspecific abnormal finding of lung field; J18.9 Pneumonia, unspecified organism; Z87.891 Personal history of nicotine dependence | CPT/HCPCS: 36415; 99214 ==

== ENCOUNTER 2025-02-06 15:03 | Outpatient (REF) | payer MEDICARE, SELFPAY ==
[2025-02-06 15:43] LABS: Abs Immature Grans 0.02 10^3/uL (0.0-0.06); HCT 41.0 % (36.0-46.0); HGB 13.4 g/dL (11.2-15.7); Immature Grans % 0.2 %; MCH 31.0 pg (27.0-33.0); MCHC 32.7 % (32.0-36.0); MCV 95 fL (80-95); RBC 4.32 10^6/uL (3.93-5.22); RDW 13.0 % (11.7-14.6); RDW-SD 45.2 fL; WBC 8.48 10^3/uL (4.4-10.8)
[2025-02-06 16:01] LABS: RBC Morphology Normal
[2025-02-08 10:42] LABS: Complement, Total 52 U/mL (30-75)
== END 2025-02-06 15:04 | disposition home or self-care (01) ==
LOC: LBN 15:03
PROVIDERS: Visit Provider Internal Medicine Pulmonary Disease
DX: J44.9 Chronic obstructive pulmonary disease, unspecified (principal); J18.9 Pneumonia, unspecified organism
CPT/HCPCS: 82784; 82785; 85025; 86162

== ENCOUNTER 2025-02-08 00:29 | Outpatient (CLI) | payer MEDICARE, SELFPAY ==
[2025-02-08] MEDS: Inhaler, Assist Device 1 EACH MC (14:24)
[2025-02-08] MEDS: Levalbuterol HFA 15 GM INH 4 PUFF IH (14:24)
--- NOTE | 2025-02-09 10:15 | W.PFT ---
Date of service: 02/08/25 Time of Service: 12:50 Pulmonary Function Test Result Indications: COPD Impression 1. Good patient effort was noted. ATS standards for reproducibility were met. 2. Spirometry showed severe obstructive lung disease with an FEV1 of 48% (1.08 L). Post-BD FEV1 improved to 52% 3. Following the administration of a bronchodilator there was not a significant response 4. TLC and RV were elevated, consistent with air trapping. 5. DLCO was 79%, consistent with a mild defect in alveolar gas exchange
== END 2025-02-08 00:30 | disposition home or self-care (01) ==
PROVIDERS: Visit Provider Internal Medicine Pulmonary Disease
DX: J44.9 Chronic obstructive pulmonary disease, unspecified (principal)
CPT/HCPCS: 94060; 94726; 94729

== ENCOUNTER 2025-02-21 00:56 | Outpatient (CLI) | payer MEDICARE, SELFPAY ==
--- NOTE | 2025-02-21 07:00 | DI.CT_ITS ---
Exam(s) CT CHEST WO EXAM: CT CHEST WO CLINICAL HISTORY: pulmonary infiltrates,copd,recurrent pneumonia,j18.9,r91.8,j42. TECHNIQUE: Imaging protocol: Axial computed tomography images were obtained and coronal and sagittal reformatted images were created and reviewed. Lung Computer Aided Detection (CAD) was utilized. COMPARISON: CT CT CHEST LUNG CANCER SCREEN from 06/05/[address] CHEST LUNG CANCER SCREEN from 07/06/2024 FINDINGS: Tracheobronchial tree: Patent where visualized. No bronchiectasis is present. Pulmonary parenchyma: Centrilobular emphysematous changes are present. There is a 5 mm nodule in the left lower lobe (series 2, image 78). Previously seen ground-glass infiltrates have completely resolved. There are no new infiltrates present. Mediastinum and Yisel: No dominant adenopathy or fluid collection. The esophagus is unremarkable.There is a small hiatal hernia. Thyroid gland: Unremarkable. Pleura: No effusion or pneumothorax. Heart: The heart is not dilated. Mild coronary artery calcification is present. No pericardial effusion. Aorta: Thoracic aorta non-dilated. Atherosclerotic calcification is present. Upper abdomen: Unremarkable. Lymph nodes: Within normal limits. Soft tissues: Unremarkable. Bones:Within normal limits for the patient's age. IMPRESSION: 1. Resolution of the ground-glass infiltrates. There are no acute infiltrates present. 2. 5 mm left lower lobe pulmonary nodule. Single solid noncalcified nodules. ???Solid nodules smaller than 6 mm (those 5 mm or smaller) do not require routine follow-up in patients at low risk (grade 1C; strong recommendation, low- or [id number] evidence). (Jayjay et al., 2017) Solid nodules smaller than 6 mm do not require routine follow-up in all patients with high clinical risk; however, some nodules smaller than 6 mm with suspicious morphology, upper lobe location, or both may warrant follow-up at 12 months (grade 2A; weak recommendation, high-quality evidence). (Jayjay et al., 2017) 3. Centrilobular emphysema. RADIATION DOSE DELIVERED: 227.15mGy.cm Total DLP 227.15mGy.cm Total DLP DATA REPOSITORY: All CT scans at this facility are submitted to the National Radiology Data Registry (NRDR) Dose Index Registry (DIR) with the [employer] ([employer]). RADIATION OPTIMIZATION: All CT scans at this facility use at least one of these dose optimization techniques: automated exposure control; mA and/or kV adjustment per patient size (includes targeted exams where dose is matched to clinical indication); or iterative reconstruction.
== END 2025-02-21 01:16 ==
LOC: DI 00:56
PROVIDERS: Visit Provider Internal Medicine Pulmonary Disease
DX: J42 Unspecified chronic bronchitis (principal); R91.8 Other nonspecific abnormal finding of lung field; J18.9 Pneumonia, unspecified organism
CPT/HCPCS: 71250

== ENCOUNTER 2025-02-21 00:59 | Outpatient (CLI) | payer MEDICARE, SELFPAY ==
--- NOTE | 2025-02-21 11:17 | DI.MAMMO_ITS ---
Exam(s) MAMMO SCREENING EXAM: MAMMO SCREENING CLINICAL HISTORY: screening,z12.39. TECHNIQUE: Bilateral full field digital CC and MLO mammographic images were obtained with 3D tomosynthesis and utilizing computer aided detection (CAD). COMPARISON: Prior mammograms were reviewed. FINDINGS: There has been no significant change in the appearance and distribution of the fibroglandular tissue. No new right breast findings. The previously described small nodule located 2.5 cm in from the nipple in the left breast is unchanged in size and configuration. This was shown to be a microcyst on ultrasound examination of 02/24/2024. There are no new spiculated masses nor new malignant appearing microcalcification groups in either breast. There is no significant architectural distortion nor skin thickening-retraction. IMPRESSION: Stable benign-appearing findings. No radiographic evidence of malignancy. BI-RADS Category 2 - Benign Findings Breast Density - Category C - The breast are heterogeneously dense, which may obscure small masses. Breast density Category C or D implies that the patient has dense breast tissue. Dense breast tissue can make it harder to find cancer on a mammogram. Dense breast tissue is also associated with an increased risk of breast cancer. This information about the result of the mammogram report was provided to the patient to raise their awareness. Use this report when you speak with the patient about their risks for breast cancer, which includes their family history. At that time, you may recommend additional screening tests (Ultrasound or MRI) as these tests may add significant information. A negative radiographic report should not delay biopsy if a dominant or clinically suspicious mass is present. Up to ten percent of cancers are not identified on mammography. A negative report may reinforce clinical impression. Adenosis and dense breasts may obscure an underlying neoplasm. False positive reports average 6 to 10%. Patient will receive a letter notifying them of these results.
== END 2025-02-21 01:19 ==
LOC: DI 00:59
DX: Z12.31 Encounter for screening mammogram for malignant neoplasm of breast (principal); R92.323 Mammographic fibroglandular density, bilateral breasts
CPT/HCPCS: 77063; 77067

== ENCOUNTER → 2025-03-15 11:28 | Outpatient (BNVA) | payer MEDICARE, SELFPAY | PROVIDERS: Visit Provider Internal Medicine Pulmonary Disease | DX: J42 Unspecified chronic bronchitis (principal); J18.9 Pneumonia, unspecified organism; R91.1 Solitary pulmonary nodule; Z87.891 Personal history of nicotine dependence | CPT/HCPCS: 99214 ==